=== PATIENT | female | born 1990 | race Two or more races ===

== ENCOUNTER 2016-09-20 17:26 | Emergency (ER) | payer MEDICAID ==
[~2016-09-20] VITALS: Ht 160 cm; Wt 78.6 kg
[2016-09-20 19:23] VITALS: BP 113/70
[2016-09-20 19:25] LABS: PATH.CAST-FLAG NOT PRESENT; SPERM-FLAG NOT PRESENT; SRC-FLAG NOT PRESENT; XTAL-FLAG NOT PRESENT; YLC-FLAG NOT PRESENT
== END 2016-09-20 19:26 | disposition home or self-care (01) ==
LOC: ED 19:20
DX: O20.0 Threatened abortion (principal); Z3A.13 13 weeks gestation of pregnancy
CPT/HCPCS: 36415; 76801; 81001; 84702; 86901

== ENCOUNTER 2016-10-06 22:33 | Emergency (ER) | payer MEDICAID ==
[~2016-10-06] VITALS: Ht 160 cm; Wt 78.7 kg
[2016-10-06 22:36] VITALS: BP 113/75
[2016-10-06] MEDS ORDERED: ACETAMINOPHEN 325 MG TABLET PO ONE (23:00)
[2016-10-06] MEDS ORDERED: ACETAMINOPHEN 325 MG TABLET ONE (23:13)
== END 2016-10-06 23:58 | disposition home or self-care (01) ==
LOC: ED 23:52
DX: O99.512 Diseases of the respiratory system complicating pregnancy, second trimester (principal); Z3A.16 16 weeks gestation of pregnancy
CPT/HCPCS: 87081; 87147; 87880; 99284

== ENCOUNTER 2018-09-28 13:38 | Emergency (ER) | payer MEDICAID ==
[~2018-09-28] VITALS: Ht 160 cm; Wt 81.3 kg
[2018-09-28 13:48] VITALS: BP 19/88
[2018-09-28 14:34] LABS: BASOPHILS # (AUTO) 0.03 x10^3/uL (0-0.1); BASOPHILS % (AUTO) 0 % (0-1); EOSINOPHILS # (AUTO) 0.05 x10^3/uL (0-0.4); EOSINOPHILS % (AUTO) 1 % (1-7); LYMPHOCYTES # (AUTO) 1.73 x10^3/uL (1-3.4); LYMPHOCYTES % (AUTO) 22 % (22-44); MD NO; MEAN CORPUSCULAR HEMOGLOBIN 30.6 pg (27.0-34.8); MEAN CORPUSCULAR HGB CONC 32.9 g/dL (32.4-35.8); MEAN PLATELET VOLUME 8.1 fL (7.4-10.4); MONOCYTES # (AUTO) 0.24 x10^3/uL (0.2-0.8); MONOCYTES % (AUTO) 3 % (2-9); NEUTROPHILS # (AUTO) 5.79 x10^3/uL (1.8-6.8); NEUTROPHILS % (AUTO) 74 % (42-75); PLATELET COUNT 303 x10^3/uL (130-400); RED BLOOD COUNT 4.49 x10^6/uL (3.82-5.3)
--- NOTE | 2018-09-28 15:18 | NUR ---
[employer] DEVELOPER: PT AMBULATORY TO ED ROOM 17 FROM [facility] IN [facility] AT THIS TIME
--- NOTE | 2018-09-28 15:33 | NUR ---
MD IS AT THE BEDSIDE TO ASSESS
== END 2018-09-28 15:54 | disposition home or self-care (01) ==
LOC: ED 15:48
DX: O20.0 Threatened abortion (principal); Z3A.01 Less than 8 weeks gestation of pregnancy
CPT/HCPCS: 36415; 76801; 84702; 85025; 86901; 99284